=== PATIENT | male | born 1985 | race Caucasian/White ===

== ENCOUNTER 2016-12-20 00:52 | Emergency (ER) | payer OTHER ==
[~2016-12-20] VITALS: Ht 177.8 cm; Wt 113.4 kg
[~2016-12-20 00:52] MED LIST: LEVAQUIN500 M1 PO; PROMETHAZINE-C118 ML PO
[2016-12-20 01:01] VITALS: BP 132/85
--- NOTE | 2016-12-20 01:06 | ED NECK/BACK PAIN COMPLAINT ---
History of Present Illness General Chief Complaint: Low Back Pain/Injury Stated Complaint: PT C/O NECK AND BACK PAIN SINCE SATURDAY Source: patient Exam Limitations: no limitations Vital Signs & Intake/Output Vital Signs & Intake/Output Vital Signs Date Time Temp Pulse Resp B/P Pulse O2 O2 Flow FiO2 Ox Delivery Rate 12/21 103 96 Room Air Room Air 12/20 100 97.1 75 20 132/85 98 Room Air Allergies Coded Allergies: amoxicillin (Intermediate, FEVER AND VOMITING 12/20/16) acetaminophen (From TYLENOL) (GI/HEARTBURN 12/20/16) Reconcile Medications Cyclobenzaprine HCl 10 MG TABLET 1 TAB PO 4 TIMES/DAY PRN MUSCLE SPASM Ibuprofen 800 MG TABLET 1 TAB PO TID PRN PAIN Triage Note: TRIAGE: PT TO ER C/C NECK AND BACK PAIN SINCE SATURDAY. NO KNOWN INJURY OR AGGRAVATING FACTOR. HAS BEEN TAKING MOTRIN AND 2 LEFT OVER FLEXERALS. SLIGHT RELIEF FROM MOTRIN. GOOD RELIEF FROM FLEXERAL. Triage Nurses Notes Reviewed? yes Onset: Gradual Duration: day(s): Timing: recent history Quality/Severity: moderate Location: lumbar spine, paraspinous muscles Radiation: none Context: unsure context Method of Injury: unknown Loss of Consciousness: no loss of consciousness Modifying Factors: movement, rest Associated Symptoms: muscle spasm HPI: 31 yo gentleman in prior good health, presents with left neck and thoracic muscle spasm, without radiation. He does not recall any trauma. He tried a few doses of ibuprofen and some old flexeril with moderate effect. He has no weakness, numbness, difficulty with bowel or bladder. He is otherwise well. Past History Travel History Traveled to [place] past 21 day No Medical History Any Pertinent Medical History? 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 No Review of Systems Review of Systems Constitutional: Reports: no symptoms. Eyes: Reports: no symptoms. Ears, Nose, Throat, Mouth: Reports: no symptoms. Respiratory: Reports: no symptoms. Cardiovascular: Reports: no symptoms. Gastrointestinal/Abdominal: Reports: no symptoms. Musculoskeletal: Reports: no symptoms. Skin: Reports: no symptoms. Neurological/Psychological: Reports: no symptoms. All Other Systems: Reviewed and Negative Physical Exam Physical Exam General Appearance: well developed/nourished, mild distress Head: atraumatic Eyes: Bilateral: normal appearance. Ears, Nose, Throat, Mouth: hearing grossly normal Neck: normal inspection, supple, full range of motion, paraspinous muscle tender , no midline tenderness Respiratory: normal breath sounds Cardiovascular: regular rate/rhythm Gastrointestinal: soft, non-tender Back: normal inspection, normal range of motion, muscle spasm, no vertebral tenderness Extremities: normal range of motion Neurologic/Psych: awake, alert, oriented x 3, normal mood/affect Skin: intact, normal color, warm/dry Comments: light touch, strength, dtr's intact in lower extremities bilaterally. Progress Differential Diagnosis: back pain, muscle spasm vs other. Plan of Care: gave nsaids/flexeril... advocated close follow up with pmd tomorrow. Departure Departure Disposition: HOME OR SELF CARE Condition: Stable Clinical Impression Primary Impression: Back pain Referrals: JARED PAEZ MD (PCP/Family) Departure Forms: Customer Survey General Discharge Information Prescriptions: Current Visit Scripts Ibuprofen 1 TAB PO TID PRN PAIN #30 TAB Ref 1 Cyclobenzaprine HCl 1 TAB PO 4 TIMES/DAY PRN MUSCLE SPASM #30 TAB Ref 1
[2016-12-20] MEDS ORDERED: IBUPROFEN800 M1 PO (01:25)
[2016-12-20] MEDS ORDERED: CYCLOBENZAPRINE10 M1 PO (01:25)
== END 2016-12-20 01:43 ==
LOC: ERH 00:52
DX: M54.6 Pain in thoracic spine (principal)